=== PATIENT | male | born 1975 | race Caucasian/White ===

== ENCOUNTER 2016-12-18 19:38 | Emergency (ER) | payer MEDICAID ==
[2016-12-18 19:49] VITALS: TEMP 98.8
[2016-12-18] MEDS ORDERED: HYDROCODONE/APAP 5/325 TAB PO ONE (20:44)
--- NOTE | 2016-12-18 20:44 | EDPHY ---
H & P Time Seen by Provider: 12/18/16 20:12 HPI/ROS: CHIEF COMPLAINT: Right heel and ankle pain HISTORY OF PRESENT ILLNESS: This is a 41-year-old male presenting to the emergency department complaining of a right heel and ankle pain. Patient states that he he bought a new skateboard long board and has been using it frequently over the past week putting pressure on his right heel, then few days ago patient was up at the [place] was walking backwards fell off a 1-2 foot and vancomycin twisting right ankle. Patient said he has had increased pain with weight-bearing over the past 2 days with swelling to right ankle. Has not taking any ibuprofen or Tylenol, denies any other injuries REVIEW OF SYSTEMS: Constitutional: No fever, no chills. Eyes: No discharge. No blurred vision Cardiovascular: No chest pain, no palpitations. Respiratory: No cough, no shortness of breath. Musculoskeletal: Right ankle pain with swelling/right heel pain Skin: No rashes. Neurological: No headache. Smoking Status: Current some day smoker Physical Exam: General Appearance: Alert, no distress. HEENT: Normocephalic atraumatic. Pupils equal and round no pallor or injection. Respiratory: There are no retractions, lungs are clear to auscultation. Cardiovascular: Regular rate and rhythm. Gastrointestinal: Abdomen is soft and nontender, no injuries noted Neurological: No focal deficits. Answering questions appropriately. Ambulatory with antalgic gait Skin: Warm and dry, no rashes. Musculoskeletal: Vertebral cervical spine nontender on palpation. Extremities: Right ankle lateral malleolus tender on palpation, positive swelling noted over lateral malleolus. His calcaneal tenderness on palpation. No ecchymosis noted. No crepitus. Positive CMS intact Constitutional: Initial Vital Signs Temperature (C) 37.1 C 12/18/16 19:45 Heart Rate 57 L 12/18/16 19:45 Respiratory Rate 18 12/18/16 19:45 Blood Pressure 104/52 L 12/18/16 19:45 O2 Sat (%) 95 12/18/16 19:45 O2 Delivery Mode Room Air Allergies/Adverse Reactions: No Known Allergies Allergy (Unverified 12/18/16 19:45) Home Medications: Medication Instructions Recorded NK [No Known Home Meds] 12/18/16 Medical Decision Making ED Course/Re-evaluation: Discussed ED plan of care: X-ray right ankle and the foot. Pain meds ordered 2129: Discussed x-ray results with patient no acute fracture seen, air splint placed. Discharge home---> stable, discussed all discharge instructions with patient Differential Diagnosis: Other differential diagnosis considered but not limited to ankle dislocation, calcaneus fracture, and malleolar fracture - Data Points Medications Given: Discontinued Medications Hydrocodone Bitart/Acetaminophen ([place] 5/325) 1 tab PO EDNOW ONE Stop: 12/18/16 20:45 Last Admin: 12/18/16 21:15 Dose: 1 tab Departure - Departure Disposition: Home, Routine, Self-Care Clinical Impression: Ankle sprain Qualifiers: Encounter type: initial encounter Involved ligament of ankle: unspecified ligament Laterality: right Qualified Code(s): S93.401A - Sprain of unspecified ligament of right ankle, initial encounter Condition: Good Instructions: Ankle Sprain (ED), Ankle Stirrup Splint (ED), RICE Therapy (ED) Additional Instructions: 1. Wear splint for the next 5-7 days 2. Decrease any prolonged pressure with right lower extremity, elevate, ice 15 minutes several times a day to help decrease swelling 3. Ibuprofen 600 mg every 6-8 hours as needed Referrals: NONE *PRIMARY CARE P,. [Primary Care Provider] - As per Instructions [facility],. [Clinic] - As per Instructions
[2016-12-18] MEDS ORDERED: HYDROCOD/APAP 5/325 PREPACK#6 BTL TAKEHOME ONE (21:34)
[2016-12-18 22:00] VITALS: BP 116/78; PULSE 60; RESP 16; O2SAT 94
== END 2016-12-18 21:59 | disposition home or self-care (01) ==
DX: S93.401A Sprain of unspecified ligament of right ankle, initial encounter (principal); F17.200 Nicotine dependence, unspecified, uncomplicated; V00.131A Fall from skateboard, initial encounter; Y99.8 Other external cause status; Y93.51 Activity, roller skating (inline) and skateboarding
CPT/HCPCS: L4350